=== PATIENT | male | born 1960 | race Caucasian/White ===

== ENCOUNTER 2016-11-05 23:49 | Emergency (ER) | payer BC ==
--- NOTE | 2016-11-06 00:19 | PHYS DOC ---
General Chief Complaint: MECHANICAL FALL Stated Complaint: FALL Time Seen by MD: 00:12 Source: patient, family Problems: History of Present Illness Initial Comments Patient here for back pain after fall. Patient says he slipped on some wet steps about 6:00. He reports no antecedent symptoms. He had no headache, visual change, speech change, weakness or numbness in the extremities, chest pain, shortness of breath, or arrhythmia symptoms. This really does seem like a mechanical slip and fall. He thinks he hit his low back on the steps. He was able to get up at the time. He had no loss of consciousness and seizure activity or incontinence. He has been able to be up and around at home. However , tonight when he tried to lay down to go to bed, he had increasing pain in the low back and decided to come to ER. Indicates the pain mostly around the mid to upper lumbar spine region. Patient had no fever chills tonight. No runny nose or sore throat. There is no URI symptoms or cough. He denies any neck pain. There's no chest pain or shortness of breath, but does say that he has some increased back pain similar as when he takes a deep breath. There is no nausea vomiting or abdominal pain. There is no change amount of bladder habits no calmness. He denies any focal extremity or neurologic complaints and as noted, has been up and about at home since the accident. Patient did take 2 Celebrex at home for this without help. He notes no other increasing or decreasing factors other than trying to lie back. He says the pain now is actually somewhat better than it was at home. Patient's past medical history is remarkable for recent diagnosis of hypertension. He is a nonsmoker and an occasional user of ethanol. Allergies: Coded Allergies: No Known Drug Allergies (Unverified , 11/06/16) Past Medical History Medical History: hypertension Social History Smoker: non-smoker Alcohol: occasionally Review of Systems All Other Systems: Reviewed and Negative Physical Exam General Appearance: WD/WN, no apparent distress Neck: full range of motion, supple, normal inspection Respiratory: lungs clear, normal breath sounds, no respiratory distress Cardiovascular: regular rate, rhythm, no edema, no gallop Gastrointestinal: non tender, soft, no organomegaly Back: no CVA tenderness, vertebral tenderness, other Extremities: non-tender, normal inspection, no pedal edema Neurologic/Psychiatric: no motor/sensory deficits, alert, normal mood/affect, oriented x 3 Skin: normal color Comments Generally this a well-developed well-nourished white male who looks to be mildly uncomfortable but in no acute distress. Vitals are as noted. Pertinent findings on physical exam shows neck to be clear. Neck is fully nontender. There is no bony cervical spinal tenderness. Chest is clear cardiovascular exam shows regular rate and rhythm with out murmur. The back shows no CVA tenderness. He has some generalized tenderness in the area of the mid to upper lumbar spine, as well as some similar but less intense tenderness over the associated paraspinal regions. There is no point tenderness, no deformity, and no signs of trauma or bruise. The thoracic spine is clear. Externally show no signs of injury. Lower extremity DTRs are 1+ or 4+ equal bilaterally. Strength 5 over 5 = system. There are no gross sensory deficits. He is able to stand and changed positions in the exam room with minimal difficulty. Straight leg raising is negative bilaterally. Patient is awake alert oriented and cooperative. Remainder of physical exam is clinically unremarkable. Orders, Labs, Meds Old charts note no prior ER visits within the current system. X-rays of the lumbosacral spine show mild to moderate degenerative changes but no acute fracture dislocation per the emergency physician. 0050 Patient resting comfortably in the ER. He feels better sitting up. He had increasing pain when he lay down on the x-ray table. I discussed with the patient fortunately this time he looks like he has only a mild contusion from his fall. Again, there is no cervical or thoracic tenderness most of his tenderness is located over the upper lumbar to mid lumbar spine region. We discussed home care including rest, ice to the back to start followed by heat, and gentle stretching exercises the back. I suggested if he has trouble laying down flat, the child is sleeping recliner. They do have one at home that he can try to use. He initially declined a shot for pain here in the ED, but after discussion and offering to get a shot for pain or tablets he would like to be given some tablets to get him through the night. I will also write prescriptions for Lortab and Norflex. He voices understanding of the need to follow up with primary care or return to the ER sooner as needed if worsening anyway. I also warned him is likely to be more stiff and sore in the morning. He appears stable, in some mild discomfort but no acute distress, neurologically intact, and okay for discharge home with . TIFFANIE PARIS MD Nov 06, 2016 00:19
[2016-11-06 00:57] VITALS: BP 160/96
[2016-11-06] MEDS ORDERED: CYCLOBENZAPRINE 10 MG TABLET. PO ONE (01:30)
[2016-11-06] MEDS ORDERED: HYDROCODONE/APAP 10/325 TABLET. PO ONE (01:30)
--- NOTE | 2016-11-06 07:33 | RAD ---
EXAM: Lumbar spine, 5 views.. HISTORY: Fall. COMPARISON: None. FINDINGS: Frontal, lateral, bilateral oblique and coned sacral views of the lumbar spine are obtained. There is slight retrolisthesis of L5 on S1, L1 on L2 and L2 on L3, a component of which is projectional. There is endplate remodeling at multiple levels, with bridging or partially bridging anterior osteophytes of the lower thoracic and upper lumbar levels. There is facet arthropathy predominantly at the lumbosacral junction. IMPRESSION: 1. Multilevel degenerative change within the thoracic and lumbar spine. 2. No acute osseous finding.
== END 2016-11-06 01:20 | disposition home or self-care (01) ==
LOC: ER 23:49
DX: S30.0XXA Contusion of lower back and pelvis, initial encounter (principal); I10 Essential (primary) hypertension; W01.0XXA Fall on same level from slipping, tripping and stumbling without subsequent striking against object, initial encounter; Y93.89 Activity, other specified; Y92.89 Other specified places as the place of occurrence of the external cause; Y99.8 Other external cause status
CPT/HCPCS: 72110; 99284

== ENCOUNTER → 2019-02-21 | Outpatient (CLI) | payer BC ==
--- NOTE | 2019-02-21 09:34 | RAD ---
Chest, PA and Lateral: Technique: PA and lateral views of the chest were obtained. History: Pain, weakness. Comparison: None. Findings: Low lung volumes accentuate heart size and pulmonary vascularity. Mild prominent bilateral interstitial lung markings probably chronic interstitial changes. IMPRESSION: 1. No acute cardiopulmonary findings. 2. Minimal prominent bilateral interstitial lung markings probably chronic interstitial changes. Electronically signed by: Ramiro Gonzalez MD (02/21/2019 9:31 AM) [id number]
[2019-02-21 10:47] LABS: BASO % 0 % (0-3); EOS # 0.1 x10^3/uL (0.0-0.7); EOS % 2 % (0-3); HEMATOCRIT 42.5 % (39.0-53.0); HEMOGLOBIN 14.3 g/dL (13.0-17.5); LYMPH # 1.9 x10^3/uL (1.0-4.8); LYMPH % 32 % (24-48); MEAN CORPUSCULAR HEMOGLOBIN 31 pg (25-35); MEAN CORPUSCULAR HGB CONC 34 g/dL (31-37); MEAN CORPUSCULAR VOLUME 90 fL (79-100); MONO # 0.6 x10^3/uL (0.0-1.1); MONO % 11 % (0-9); NEUT # 3.2 x10^3uL (1.8-7.7); NEUT % 55 % (31-73); PLATELET COUNT 227 x10^3/uL (140-400); RED CELL DISTRIBUTION WIDTH 14.5 % (11.5-14.5); WHITE BLOOD COUNT 5.8 x10^3/uL (4.0-11.0)
[2019-02-21 10:56] LABS: ALBUMIN/GLOBULIN RATIO 1.3 (1.0-1.7); CALCIUM 9.4 mg/dL (8.5-10.1); GFR 76.2; POTASSIUM 3.8 mmol/L (3.5-5.1); TOTAL BILIRUBIN 0.5 mg/dL (0.2-1.0); TOTAL PROTEIN 7.1 g/dL (6.4-8.2)
== END | disposition home or self-care (01) ==
LOC: LAB 08:51
PROVIDERS: ATTEND Orthopaedic Surgery
DX: Z01.818 Encounter for other preprocedural examination (principal); M75.121 Complete rotator cuff tear or rupture of right shoulder, not specified as traumatic
CPT/HCPCS: 36415; 71046; 80053; 85025; 93005

== ENCOUNTER → 2020-08-15 | Outpatient (CLI) | payer BC ==
--- NOTE | 2020-08-15 09:24 | RAD ---
EXAM: Chest, 2 views. HISTORY: Preoperative evaluation. COMPARISON: 02/21/2019 FINDINGS: 2 views of the chest are obtained. There is no infiltrate, pleural effusion or pneumothorax . The heart is normal in size. IMPRESSION: No acute pulmonary finding. Electronically signed by: Arianna Walden MD (08/15/2020 9:21 AM) [id number]
== END ==
LOC: PMG 08:47
PROVIDERS: ATTEND Physician Assistant Medical
DX: Z01.818 Encounter for other preprocedural examination (principal); M75.100 Unspecified rotator cuff tear or rupture of unspecified shoulder, not specified as traumatic
CPT/HCPCS: 71046